=== PATIENT | male | born 1995 | race Caucasian/White ===

== ENCOUNTER 2019-04-10 10:04 | Emergency (ER) | payer OTHER ==
[2019-04-10] MEDS ORDERED: Ibuprofen 600 MG Tab PO ONE (10:30)
[2019-04-10] MEDS ORDERED: Acetaminophen/oxyCODONE 325-5 MG Tab PO ONE (10:31)
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
--- NOTE | 2019-04-11 06:36 | CR ---
Left wrist: Four views of the left wrist were obtained. Comparison: No prior wrist study. Cortical thickening seen within the 3rd metacarpal compatible with old injury. Joint spaces within the left wrist are maintained. No acute fracture, dislocation or other bony abnormality is seen. Impression: 1. Cortical thickening within the 3rd metacarpal compatible with old injury. 2. Nothing acute is seen on left wrist exam. Diagnostic code #2 This report was dictated in [place] Standard Time
--- NOTE | 2019-04-11 06:36 | CR ---
Right humerus: Two views of the right humerus are obtained. No discrete fracture or other bony abnormality is seen. Impression: 1. Nothing acute is seen on two-view right humerus study. Diagnostic code #1 This report was dictated in [place] Standard Time
--- NOTE | 2019-04-11 06:36 | CR ---
Right forearm: Two views of the right forearm were obtained. Comparison: No prior forearm study. Two overlapping opacities are seen posterior to the elbow, please correlate if these represent surgical clips or other abnormality. Soft tissue swelling is noted within the posterior forearm. No acute fracture or other bony abnormality is seen. Impression: 1. Two overlapping opacities posterior to the elbow as noted above. 2. Soft tissue swelling. 3. No acute bony abnormality is seen. Diagnostic code #3 This report was dictated in [place] Standard Time
== END 2019-04-10 12:26 | disposition home or self-care (01) ==
LOC: JD.ED 10:04
DX: S63.502A Unspecified sprain of left wrist, initial encounter (principal); S50.11XA Contusion of right forearm, initial encounter; V89.2XXA Person injured in unspecified motor-vehicle accident, traffic, initial encounter
CPT/HCPCS: 73060; 73090; 73110; 99283; A9270

== ENCOUNTER 2020-09-10 16:29 | Emergency (ER) | payer OTHER ==
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
[2020-09-10 17:53] LABS: ACETAMINOPHEN 0 ug/mL (10-30)
== END 2020-09-10 18:20 | disposition home or self-care (01) ==
LOC: JD.ED 16:29
DX: R44.3 Hallucinations, unspecified (principal)
CPT/HCPCS: 36415; 80053; 80143; 80179; 80307; 84443; 85007; 85027; 99283; 99284

== ENCOUNTER 2020-11-11 11:36 | Emergency (ER) | payer OTHER ==
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
--- NOTE | 2020-11-11 16:58 | CR ---
Thoracic spine: AP and lateral views of the thoracic spine were obtained as well as a swimmer's view. Comparison: No previous thoracic spine study. Three or four slight compression deformities are seen within the mid and lower thoracic spine. Uncertain if these are acute or old. Pedicles are intact. Minimal scoliosis is noted. No subluxation is seen. Old fracture is noted within the first rib on the right side. Disc space narrowing is noted at T11-12 with slight endplate spurring. Impression: 1. Three or four slight compression deformities which are age indeterminate, MRI would be needed to differentiate if clinically indicated. 2. Old right first rib fracture. 3. Slight scoliosis. Minimal degenerative change at T11-12 with disc space narrowing and slight spurring. Diagnostic code #3
--- NOTE | 2020-11-11 17:01 | CR ---
Right hand: 4 views of the right hand were obtained. Comparison: No prior hand exam is available. Fracture appears to be present within the distal right second finger at the base of the metacarpal head. Deformity is noted within the fifth metacarpal presumably due to old injury. No additional fracture or other bony abnormality is appreciated. Impression: 1. Findings suspicious for fracture within the distal second metacarpal. Please correlate if symptomatic by the patient. 2. Old fracture deformity within the fifth metacarpal. 3. No additional abnormality is appreciated. Diagnostic code #3
== END 2020-11-11 12:50 | disposition home or self-care (01) ==
LOC: JD.ED 11:36
DX: S60.221A Contusion of right hand, initial encounter (principal); S20.221A Contusion of right back wall of thorax, initial encounter; Z86.16 Personal history of COVID-19; V19.9XXA Pedal cyclist (driver) (passenger) injured in unspecified traffic accident, initial encounter
CPT/HCPCS: 72072; 72072-26; 73130-26-RT; 73130-RT; 99283; 99284-25